=== PATIENT | female | born 1970 | race Caucasian/White ===

== ENCOUNTER 2017-03-23 17:54 | Emergency (ER) | payer BC ==
[2017-03-23 18:14] VITALS: BP 134/64
--- NOTE | 2017-03-23 18:34 | UC ---
Skin Complaint HPI - HPI Summary HPI Summary: 46 yo female with blistering rash to right foot x 2 weeks very itchy - History of Current Complaint Chief Complaint: UCSkin Time Seen by Provider: 03/23/17 18:16 Stated Complaint: BLISTERS/ITCHY RIGHT FOOT Hx Obtained From: Patient Hx Last Menstrual Period: 03/07/17 Onset/Duration: Gradual Onset, Lasting Weeks Timing: Constant Onset Severity: Mild Current Severity: Moderate Pain Intensity: 2 Pain Scale Used: 0-10 Numeric Location: Foot (Right) Character: Pruritus, Redness, Raised, Painful Aggravating: Touch Alleviating: OTC Meds, Other - epson salts soaks Associated Signs & Symptoms: Positive: Rash - Allergy/Home Medications Allergies/Adverse Reactions: Allergies Allergy/AdvReac Type Severity Reaction Status Date / Time Amoxicillin [From Augmentin] Allergy Intermediate rash/vomiti Verified 03/23/17 18:15 ng Clavulanic Acid Allergy Intermediate rash/vomiti Verified 03/23/17 18:15 [From Augmentin] ng Codeine Allergy Intermediate vomiting/ra Verified 03/23/17 18:15 sh Influenza Vaccines Allergy Intermediate Rash Verified 03/23/17 18:15 Levofloxacin [From Levaquin] Allergy Intermediate rash/vomiti Verified 03/23/17 18:15 ng Penicillins Allergy Intermediate rash/vomiti Verified 03/23/17 18:15 ng Home Medications: Home Medications Aspirin [Aspirin 81 MG TAB] 81 mg PO DAILY 03/23/17 [History Confirmed 03/23/17] Control Pill 1 tab DAILY 03/23/17 [History Confirmed 03/23/17] Review of Systems Constitutional: Negative Skin: Rash Eyes: Negative ENT: Negative Respiratory: Negative Cardiovascular: Negative Gastrointestinal: Negative Genitourinary: Negative Motor: Negative Neurovascular: Negative Musculoskeletal: Negative Neurological: Negative Psychological: Negative All Other Systems Reviewed And Are Negative: Yes PMH/Surg Hx/FS Hx/Imm Hx Cardiovascular History: Other Other Cardiovascular History: valvular heart disease - Surgical History Surgical History: Yes Surgery Procedure, Year, and Place: aortic valve replacement 2013. splenic aneurysm 1988. gallbladder/spleen/appendix. right ovary removed - Family History Known Family History: Positive: Hypertension, Diabetes - Social History Alcohol Use: Occasionally Substance Use Type: None Smoking Status (MU): Never Smoked Tobacco Physical Exam Triage Information Reviewed: Yes Appearance: Well-Appearing, No Pain Distress, Well-Nourished Vital Signs: Initial Vital Signs Temp 96.4 F 03/23/17 18:06 Pulse 63 03/23/17 18:06 Resp 16 03/23/17 18:06 BP 134/64 03/23/17 18:06 Pulse Ox 98 03/23/17 18:06 Vital Signs Reviewed: Yes Eyes: Positive: Conjunctiva Clear ENT: Positive: Hearing grossly normal. Negative: Nasal congestion, Nasal drainage, Trismus, Muffled/hoarse voice Neck: Positive: Supple, Nontender, No Lymphadenopathy Respiratory: Positive: Lungs clear, Normal breath sounds, No respiratory distress, No accessory muscle use Cardiovascular: Positive: RRR, No Murmur Musculoskeletal: Positive: ROM Intact, No Edema Neurological: Positive: Alert Psychological Exam: Normal Skin Exam: Other - see image Course/Dx - Diagnoses Provider Diagnoses: tinea pedis Discharge - Discharge Plan Condition: Stable Disposition: HOME Prescriptions: Clotrimazole/Betamethasone* [Lotrisone Cream*] 1 applic TOPICAL BID #1 tube Patient Education Materials: Athlete's Foot (ED) Additional Instructions: epsom salts soaks twice daily gently dry apply lotrisone cr recheck in 2-3 weeks if not better recheck sooner for new or worsening symptoms Images Feet (Multiple View): 1 - rash c/w tinea 2 - rash c/w tinea
== END 2017-03-23 18:34 | disposition home or self-care (01) ==
LOC: UCCORT 17:54
DX: B35.3 Tinea pedis (principal); I38 Endocarditis, valve unspecified; Z95.2 Presence of prosthetic heart valve; Z79.82 Long term (current) use of aspirin; Z88.1 Allergy status to other antibiotic agents; Z88.5 Allergy status to narcotic agent; Z88.0 Allergy status to penicillin; Z88.7 Allergy status to serum and vaccine; Z88.8 Allergy status to other drugs, medicaments and biological substances
CPT/HCPCS: 99212; G0463

== ENCOUNTER 2018-07-03 12:44 | Observation (INO) | payer BC ==
[2018-07-03] MEDS ORDERED: NS 0.9% 1000 ML* 1,000 ML IV ONE (13:26)
[2018-07-03] MEDS ORDERED: Metoclopramide IV* 5 MG/ML 2 ML VIAL IV ONE (13:26)
[2018-07-03] MEDS ORDERED: diPHENhydraMINE PO* 25 MG PO ONE (13:28)
[2018-07-03] MEDS ORDERED: fentaNYL* 50 MCG/ML 2 ML VIAL (100 MCG VIAL) IV SLOW PU ONE (13:29)
--- NOTE | 2018-07-03 13:36 | ED ---
Headache - HPI Summary HPI Summary: This patient is a 48 year old F presenting to [facility] with a chief complaint of intermittent headaches in her left temporal area since 2 months ago, changing to a constant headache since 7 days ago. The patient rates the pain 7/10 in severity currently. Patient reports blurred vision, light-headedness, dizziness when standing up, pains in her legs bilat, rib pain bilat, nausea secondary to headache, sensitivity to light, and difficulty sleeping. Patient denies pain in the eye, vomiting, neck pain, CP, weakness in extremities, slurred speech, SOB, and fevers. Patient denies any history of severe headaches or migraines. She met with her doctor a couple months ago when the headaches started. She was instructed to stop taking control pills, but she has still not had a menstrual period. Her doctor believes it is pre-menopause symptoms. Patient has PSHx of a splenectomy, cholecystectomy, appendectomy, oophorectomy, and aortic valve replacement with a bovine valve. She has a PMHx of a splenic aneurism and heart infection. She currently takes baby aspirin, iron supplements, and Levothyroxine. - History Of Current Complaint Chief Complaint: EDHeadache Stated Complaint: HEADACHES Time Seen by Provider: 07/03/18 13:19 Hx Obtained From: Patient Hx Last Menstrual Period: 03/07/17 Onset/Duration: Gradual Onset, Started weeks ago - 2 months ago, Worse Since - Became constant starting 7 days ago Currently Pain Is: Current Pain Scale(0-10)= - 7 Timing: Constant - Starting 7 days ago, Days Location of Headache: Temporal - Left temporal Associated Signs And Symptoms: Dizziness, Nausea - Secondary to ZAPATA, Vomiting - Denies, Fever - Denies, Neck Pain - Denies, Visual Changes - Blurred vision and sensitivity to light, Other (Noted In Comments) - Light-headedness, pains in her LE bilat, rib pain bilat, and difficulty sleeping. Denies pain in the eye, CP, weakness in extremities, slurred speech, and SOB. - Allergies/Home Medications Allergies/Adverse Reactions: Allergies Allergy/AdvReac Type Severity Reaction Status Date / Time MS Amoxicillin Allergy Intermediate rash/vomiti Verified 03/23/17 18:15 [From Augmentin] ng MS Clavulanic Acid Allergy Intermediate rash/vomiti Verified 03/23/17 18:15 [From Augmentin] ng MS Codeine [Codeine] Allergy Intermediate vomiting/ra Verified 03/23/17 18:15 sh MS Influenza Vaccines Allergy Intermediate Rash Verified 03/23/17 18:15 [Influenza Vaccines] MS Levofloxacin Allergy Intermediate rash/vomiti Verified 03/23/17 18:15 [From Levaquin] ng MS Penicillins [Penicillins] Allergy Intermediate rash/vomiti Verified 03/23/17 18:15 ng Home Medications: Home Medications Aspirin EC TAB* [Ecotrin EC Low Dose 81 MG*] 81 mg PO DAILY 07/03/18 [History Confirmed 07/03/18] Ferrous Sulfate TAB* 325 mg PO DAILY 07/03/18 [History Confirmed 07/03/18] Levothyroxine TAB* [Synthroid TAB*] 100 mcg PO DAILY 07/03/18 [History Confirmed 07/03/18] PMH/Surg Hx/FS Hx/Imm Hx Endocrine/Hematology History: Denies: Hx Diabetes Cardiovascular History: Reports: Hx Coronary Artery Disease GI History: Reports: Hx Gall Bladder Disease - Surgical History Surgery Procedure, Year, and Place: aortic valve replacement 2013. splenic aneurysm 1988. gallbladder/spleen/appendix. right ovary removed Infectious Disease History: No Infectious Disease History: Denies: Traveled Outside the [place] in Last 30 Days - Family History Known Family History: Positive: Hypertension, Diabetes - Social History Alcohol Use: Occasionally Substance Use Type: Reports: None Smoking Status (MU): Never Smoked Tobacco Review of Systems Positive: Other - Difficulty sleeping. Negative: Fever Positive: Photophobia, Blurred Vision. Negative: Other - Denies pain in the eye Negative: Other - Denies neck pain Negative: Chest Pain Negative: Shortness Of Breath Positive: Nausea - Secondary to ZAPATA. Negative: Vomiting Positive: Other - Pain in LE bilat, pain in ribs bilat. Denies weakness in extremities. Neurological: Other - Light-headedness, dizzines when standing up Positive: Headache - in left temporal are since 2 months ago, changing to a constant headache since 7 days ago. Negative: Slurred Speech All Other Systems Reviewed And Are Negative: Yes Physical Exam - Summary Physical Exam Summary: VITAL SIGNS: Reviewed. GENERAL: Patient is a well-developed and nourished FEMALE who is lying comfortable in the stretcher. Patient is not in any acute respiratory distress. HEAD AND FACE: No signs of trauma. No ecchymosis, hematomas or skull depressions. No sinus tenderness. EYES: PERRLA, EOMI x 2, No injected conjunctiva, no nystagmus. EARS: Hearing grossly intact. Ear canals and tympanic membranes are within normal limits. MOUTH: Oropharynx within normal limits. NECK: Supple, trachea is midline, no adenopathy, no JVD, no carotid bruit, no c- spine tenderness, neck with full ROM. CHEST: Symmetric, no tenderness at palpation LUNGS: Clear to auscultation bilaterally. No wheezing or crackles. CVS: Regular rate and rhythm, S1 and S2 present, no murmurs or gallops appreciated. ABDOMEN: Soft, non-tender. No signs of distention. No rebound no guarding, and no masses palpated. Bowel sounds are normal. EXTREMITIES: FROM in all major joints, no edema, no cyanosis or clubbing. NEURO: Alert and oriented x 3. No acute neurological deficits. Speech is normal and follows commands. SKIN: Dry and warm GCS: 15 Triage Information Reviewed: Yes Vital Signs On Initial Exam: Initial Vitals Temp Pulse Resp BP Pulse Ox 97.6 F 64 16 141/84 100 07/03/18 12:54 07/03/18 12:54 07/03/18 12:54 07/03/18 12:54 07/03/18 12:54 Vital Signs Reviewed: Yes Diagnostics - Vital Signs Vital Signs Temp Pulse Resp BP Pulse Ox 07/03/18 12:54 97.6 F 64 16 141/84 100 - Laboratory Result Diagrams: 07/03/18 13:48 07/03/18 13:48 Lab Statement: Any lab studies that have been ordered have been reviewed, and results considered in the medical decision making process. - CT Brain CT CT Interpretation Completed By: Radiologist Summary of CT Findings: 15:50. 1. At the lateral aspect of the right transverse sinus there is a 6 mm filling defect of. uncertain clinical significance. Differential includes thrombus or a pacchionian. granulation. If there exists clinical concern for dural venous thrombosis superior. characterization can be made with MRV of the brain. 2. Otherwise normal and age-appropriate CT of the brain. ED Physician has reviewed this imaging report. - EKG 13:34 Cardiac Rate: Bradycardia - 58 BPM EKG Rhythm: Sinus Rhythm ST Segment: Normal Headache Course/Dx - Course Assessment/Plan: This patient is a 48 year old F presenting to [facility] with a chief complaint of intermittent headaches in her left temporal area since 2 months ago, changing to a constant headache since 7 days ago. The patient rates the pain 7/10 in severity currently. Patient reports blurred vision, light- headedness, dizziness when standing up, pains in her legs bilat, rib pain bilat , nausea secondary to headache, sensitivity to light, and difficulty sleeping. Patient denies pain in the eye, vomiting, neck pain, CP, weakness in extremities , slurred speech, SOB, and fevers. Patient denies any history of severe headaches or migraines. She met with her doctor a couple months ago when the headaches started. She was instructed to stop taking control pills, but she has still not had a menstrual period. Her doctor believes it is pre- menopause symptoms. Patient has PSHx of a splenectomy, cholecystectomy, appendectomy, oophorectomy, and aortic valve replacement with a bovine valve. She has a PMHx of a splenic aneurysm and heart infection. She currently takes baby aspirin, iron supplements, and Levothyroxine. Blood work without any significant abnormality except FOR WBCs of 12.6, ESR is 34, and alkaline phosphatase is 724. Head CT impression: 1. At the lateral aspect of the right transverse sinus there is a 6 mm filling defect of. uncertain clinical significance. Differential includes thrombus or a pacchionian. granulation. If there exists clinical concern for dural venous thrombosis superior. characterization can be made with MRV of the brain. 2. Otherwise normal and age -appropriate CT of the brain. In the ED course the patient was given IV fluids. I discuss my physical exam findings and test results with Dr. Nguyen from neurology and he recommends actually an MRI for her brain as well as an MRV. He also recommends admission to the hospital. At this point I discussed my physical exam findings and test results with Dr. Corral from the hospital services work who accepts the patient for admission. The patient continues to be hemodynamically stable alert and oriented 3. - Diagnoses Provider Diagnoses: Headache, Abnormal head CT Discharge - Sign-Out/Discharge Documenting (check all that apply): Patient Departure - Admit - Discharge Plan Condition: Stable Disposition: ADMITTED TO [facility] - Billing Disposition and Condition Condition: STABLE Disposition: Admitted to [facility] - Attestation Statements Document Initiated by Scribe: Yes Documenting Scribe: Rashid Salter Provider For Whom Scribe is Documenting (Include Credential): Beck Floyd MD Scribe Attestation: I, Rashid Salter, scribed for Beck Floyd MD on 07/03/18 at 1809. Scribe Documentation Reviewed: Yes Provider Attestation: The documentation as recorded by the Rashid reynaga accurately reflects the service I personally performed and the decisions made by me, Beck Floyd MD Status of Scribe Document: Viewed
[2018-07-03 14:12] LABS: Hematocrit 43 % (35-47); Hemoglobin 14.2 g/dl (12.0-16.0); Mean Corpuscular HGB Conc 33 g/dl (31-36); Mean Corpuscular Hemoglobin 30 pg (27-31); Mean Corpuscular Volume 90 fL (80-97); Red Blood Count 4.79 10^6/ul (4.00-5.40); Red Cell Distribution Width 14 % (10.5-15); White Blood Count 12.6 10^3/ul (3.5-10.8)
[2018-07-03 14:34] LABS: EGFR Non-African American 85.7 (>60)
[2018-07-03 15:49] LABS: ABS Basophils 0.1 10^3/ul (0-0.2); ABS Eosinophils 0.5 10^3/ul (0-0.6); ABS Lymphocytes 4.3 10^3/ul (1.0-4.8); ABS Neutrophils 6.7 10^3/ul (1.5-7.7); ABS Nucleated RBC 0 10^3/ul; Eosinophil % 3.8 %; Lymphocyte % 33.9 %; Nucleated Red Blood Cells % 0.1; Platelet Count 258 10^3/ul (150-450)
[2018-07-03] MEDS: NS 0.9% 1000 ML* 1,000 ML IV SCH (16:32)
--- NOTE | 2018-07-03 16:56 | ADMNOTE ---
Subjective Date of Service: 07/03/18 Interval History: ADM;ISSION HISTORY AND PHYSICAL EXAM: Allergies Allergy/AdvReac Type Severity Reaction Status Date / Time MS Amoxicillin Allergy Intermediate rash/vomiti Verified 03/23/17 18:15 [From Augmentin] ng MS Clavulanic Acid Allergy Intermediate rash/vomiti Verified 03/23/17 18:15 [From Augmentin] ng MS Codeine [Codeine] Allergy Intermediate vomiting/ra Verified 03/23/17 18:15 sh MS Influenza Vaccines Allergy Intermediate Rash Verified 03/23/17 18:15 [Influenza Vaccines] MS Levofloxacin Allergy Intermediate rash/vomiti Verified 03/23/17 18:15 [From Levaquin] ng MS Penicillins [Penicillins] Allergy Intermediate rash/vomiti Verified 03/23/17 18:15 ng Home Medications Medication Instructions Recorded Confirmed Type Aspirin EC TAB* [Ecotrin EC Low 81 mg PO DAILY 07/03/18 07/03/18 History Dose 81 MG*] Ferrous Sulfate TAB* 325 mg PO DAILY 07/03/18 07/03/18 History Levothyroxine TAB* [Synthroid TAB*] 100 mcg PO DAILY 07/03/18 07/03/18 History HPI: MIld headach x 1 month, bad H/A for 1 week, gone completely after IV fentanyl in ED. Pt took NSAID's at home with little relief. She states he cannot tolerate codeine Family History: Findings - unremarkable Social History: Findings - Lives with her who is her SDM. Never smoked , rare alcohol. 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 Past Medical History: Findings - Splenectomy for aneurysm, cholecystectomy, UL oophorectomy, AVR 2014 tissue valve Review of Systems - Measurements Intake and Output: Intake and Output Last 24 Hours 07/01/18 07/02/18 07/03/18 07/04/18 06:59 06:59 06:59 06:59 Intake Total 1000 Balance 1000 Weight 195 lb Intake: IV Fluids 1000 - Review of Systems Constitutional Symptoms: Negative: Weight Gain, Weight Loss, Weakness, Fatigue, Fever, Night Sweats, Unexplained Falls, Other Dermatology: Positive: Normal HEENT: Positive: Normal Eyes: Positive: Normal Thyroid: Positive: Normal Pulmonary: Positive: Normal Cardiology: Positive: Normal Gastroenterology: Positive: Normal Genital - Urinary: Positive: Normal Musculoskeletal: Positive: Other - lower leg pains off and on past month Endocrinology: Positive: Normal Hematologic/Lymphatic: Negative: Anemia, Easy Brusing, Hx Leukemia, Hx Lymphoma, Use of Anticoagulant, Use of Antiplatelet Drugs, Other Neurology: Positive: Headache Psychiatry: Positive: Normal Allergic/Immunologic: Negative: Hx Anaphylaxis, Hx Angioedema, Hx Environmental, Hx Seasonal, Athsma, Hx HIV, Immunocompromise, Swollen Glands LymphNodes, Other Objective Active Medications: Sodium Chloride (Ns 0.9% 1000 Ml*) 1,000 mls @ 150 mls/hr IV PER RATE KAT Last Admin: 07/03/18 16:32 Dose: 150 mls/hr Vital Signs - 8 hr 07/03/18 07/03/18 12:54 13:59 Temperature 97.6 F Pulse Rate 64 Respiratory 16 18 Rate Blood Pressure 141/84 (mmHg) O2 Sat by Pulse 100 Oximetry Oxygen Devices in Use Now: None Appearance: Alert, partly up on ED stretcher. In good spirits. Looks comfortable. Eyes: No Scleral Icterus Neck: NL Appearance and Movements; NL JVP, No Thyroid Enlargement, Masses Respiratory: Symmetrical Chest Expansion and Respiratory Effort, Clear to Auscultation, Clear to Percussion Cardiovascular: RRR, No Edema, - - 3/6 systolic murmur across precordium R > L Extremities: No Edema, No Clubbing, Cyanosis, - Skin: No Rash or Ulcers, No Nodules or Sclerosis, - Neurological: Alert and Oriented x 3, NL Sensation - No tremor. Result Diagrams: 07/03/18 13:48 07/03/18 13:48 Assess/Plan/Problems-Billing Assessment: - Patient Problems (1) Headache Current Visit: Yes Status: Acute Code(s): R51 - HEADACHE SNOMED Code(s): 87161212 Comment: CT scan suggests possible dural vein thrombosis. MRI neg and MRV showed arachnoid granulation tissue. Pt's has cerebral mets from melanoma and is getting chemo. (2) Hypothyroid Current Visit: Yes Status: Acute Code(s): E03.9 - HYPOTHYROIDISM, UNSPECIFIED SNOMED Code(s): 96552021 Comment: TSH addon requested. (3) S/P splenectomy Current Visit: Yes Status: Acute Comment: This would account for her leukocytosis. (4) Hx of iron deficiency anemia Current Visit: Yes Status: Acute Code(s): Z86.2 - PRSNL HISTORY OF DIS OF THE BLD/BLD-FORM ORG/IMMUN [facility] SNOMED Code(s): 177045954 Comment: Patient states she takes iron because she was anemic in the past. Pt advised to ask her PCP to test her to see if she still needs to take iron. Status and Disposition: Discharge now. Fup her PCP.
[2018-07-03] MEDS ORDERED: Acetaminophen TAB* 325 MG PO PRN (20:40)
[2018-07-03 21:19] LABS: Urine Appearance Clear; Urine Blood Negative (Negative); Urine Color Yellow; Urine Ketones Negative (Negative); Urine Protein Negative (Negative); Urine Specific Gravity 1.015 (1.010-1.030); Urine Urobilinogen Negative (Negative)
[2018-07-04] MEDS: NS 0.9% 1000 ML* 1,000 ML IV SCH (03:54)
[2018-07-04] MEDS ORDERED: Levothyroxine TAB* 100 MCG TAB PO SCH (06:00)
[2018-07-04 10:19] VITALS: BP 121/69
--- NOTE | 2018-07-04 13:21 | DS ---
DISCHARGE SUMMARY: DATE OF ADMISSION: 07/03/18 DATE OF DISCHARGE: 07/04/18 HOSPITAL COURSE: This 48-year-old woman presented with a headache. It is very unusual for her to have headaches. It had been present for about a month. They were more severe the last week. After a dose of fentanyl in the ER, it seemed to go away completely. She did have to get acetaminophen in the middle of the night in the hospital, this did relieve her pain, but came back at the end of the morning about level 2. There was some concern on the initial CT scan that there might be a dural vein thrombosis; however, the MRV showed that this was an arachnoid granulation tissue. The MRI of the brain was negative. I suspect her headache is related to the stress of her undergoing chemotherapy for melanoma, metastatic to the brain. The patient will follow up with her PCP. She will discuss with her PCP, her use of iron. She had been anemic in the past. She is not anemic now and likely should have some type of iron studies to evaluate if she should continue taking iron depending on the previous history. FINAL DIAGNOSES: 1. Headache. 2. Hypothyroid. 3. Status post splenectomy. 4. History of anemia. DISCHARGE MEDICATIONS: 1. Acetaminophen 650 mg every 6 hours p.r.n. 2. Levothyroxine 100 mcg daily. 3. Ferrous sulfate 325 mg daily. 4. Aspirin 81 mg daily. CONDITION ON DISCHARGE: stable DISPOSITION ON DISCHARGE: discharge home [id number]/[facility] #: [id number] MTDD
== END 2018-07-04 11:26 | disposition home or self-care (01) ==
LOC: ED 12:44 → MEDTELE 16:59
PROVIDERS: ADMIT Internal Medicine; ATTEND Internal Medicine
DX: R51 Headache (principal); E03.9 Hypothyroidism, unspecified; Z90.81 Acquired absence of spleen; Z79.82 Long term (current) use of aspirin; Z79.899 Other long term (current) drug therapy
CPT/HCPCS: 36415; 70450; 70544; 70551; 80053; 81003; 82375; 83605; 84443; 85025; 85652; 86850; 86900; 86901; 93005; 96361; 96374; 96375; 99284; A9270-GY; G0378; J2765; J3010

== ENCOUNTER 2019-05-11 17:47 | Emergency (ER) | payer BC ==
[2019-05-11] MEDS ORDERED: Tetan/Diph/Pertus SYR(Tdap)* 0.5 ML SYR(BOOSTRIX) use SYR contains LATEX IM ONE (18:01)
[2019-05-11 18:02] VITALS: BP 131/83
--- NOTE | 2019-05-11 18:11 | UC ---
Hand/Wrist HPI - HPI Summary HPI Summary: Patient slammed the right hand in a car door, sustained a small laceration to the tip of the right index finger. needs tetanus update - History Of Current Complaint Chief Complaint: UCWounds Stated Complaint: LACERATION RIGHT INDEX FINGER Time Seen by Provider: 05/11/19 17:57 Hx Obtained From: Patient Hx Last Menstrual Period: 03/07/17 ?: No Onset/Duration: Sudden Onset, Lasting Hours Severity Initially: Mild Severity Currently: Mild Pain Intensity: 0 Character Of Pain: Throbbing Aggravating Factor(s): Movement Alleviating Factor(s): Nothing Associated Signs And Symptoms: Positive: Negative Related History: Dominant Hand Right - Allergies/Home Medications Allergies/Adverse Reactions: Allergies Allergy/AdvReac Type Severity Reaction Status Date / Time amoxicillin [From Augmentin] Allergy Rash Verified 05/11/19 18:04 clavulanic acid Allergy Rash Verified 05/11/19 18:04 [From Augmentin] codeine Allergy Rash Verified 05/11/19 18:04 Influenza Virus Vaccines Allergy Rash Verified 05/11/19 18:04 levofloxacin [From Levaquin] Allergy Rash Verified 05/11/19 18:04 Penicillins Allergy Rash Verified 05/11/19 18:04 Home Medications: Home Medications Meclizine TAB* [Antivert 12.5 TAB*] 12.5 mg PO DAILY 05/11/19 [History Confirmed 05/11/19] PMH/Surg Hx/FS Hx/Imm Hx Previously Healthy: Yes Other Cardiovascular History: endocarditis - Surgical History Surgical History: Yes Surgery Procedure, Year, and Place: aortic valve replacement 2013. splenic aneurysm 1988. gallbladder/spleen/appendix. right ovary removed - Family History Known Family History: Positive: Hypertension, Diabetes - Social History Alcohol Use: Rare Substance Use Type: None Smoking Status (MU): Never Smoked Tobacco - Immunization History Most Recent Influenza Vaccination: never Most Recent Tetanus Shot: No idea Most Recent Pneumonia Vaccination: never Review of Systems All Other Systems Reviewed And Are Negative: Yes Skin: Positive: Other - laceration Is Patient Immunocompromised?: No Physical Exam Triage Information Reviewed: Yes Appearance: Well-Appearing, Well-Nourished, Pain Distress Vital Signs: Initial Vital Signs Temp 99.3 F 05/11/19 17:55 Pulse 59 05/11/19 17:55 Resp 18 10/18/19 17:55 BP 131/83 05/11/19 17:55 Pulse Ox 100 05/11/19 17:55 Vital Signs Reviewed: Yes Eye Exam: Normal ENT Exam: Normal Dental Exam: Normal Neck exam: Normal Respiratory Exam: Normal Respiratory: Positive: Chest non-tender, Lungs clear, Normal breath sounds Cardiovascular Exam: Normal Cardiovascular: Positive: RRR, No Murmur, Pulses Normal Abdominal Exam: Normal Bowel Sounds: Positive: Present Musculoskeletal: Positive: Strength Intact, ROM Intact, Edema @ - at right distal index finger Neurological Exam: Normal Psychological Exam: Normal Skin: Positive: Other - 1 cm lac on tip of index finger, finger is bruised Hand/Wrist Course/Dx - Course Course Of Treatment: hx obtained, exam performed ,meds reviewed, tetanus updated, lac was glued and steri stripped, - Differential Dx/Diagnosis Differential Diagnosis/HQI/PQRI: Contusion, Fracture Provider Diagnosis: Laceration of right index finger Discharge ED - Sign-Out/Discharge Documenting (check all that apply): Patient Departure All imaging exams completed and their final reports reviewed: No Studies - Discharge Plan Condition: Stable Disposition: HOME Patient Education Materials: Skin Adhesive Care (ED), Laceration (ED) Referrals: Jaqueline Velásquez MD [Primary Care Provider] - Additional Instructions: 1. let the glue and steri strips fall off on their own. 2. Keep the area clean and dry 3. Follow up with any sign of infection - Billing Disposition and Condition Condition: STABLE Disposition: Home
== END 2019-05-11 18:23 | disposition home or self-care (01) ==
LOC: UCCORT 17:47
DX: S61.210A Laceration without foreign body of right index finger without damage to nail, initial encounter (principal); Z88.0 Allergy status to penicillin; Z88.5 Allergy status to narcotic agent; Z88.7 Allergy status to serum and vaccine; Z88.1 Allergy status to other antibiotic agents; W23.0XXA Caught, crushed, jammed, or pinched between moving objects, initial encounter; Y92.9 Unspecified place or not applicable
CPT/HCPCS: 12001; 90715; 99211; G0463